=== PATIENT | female | born 1930 | race Caucasian/White ===

== ENCOUNTER → 2016-09-17 | Outpatient (REF) | payer MEDICARE, OTHER ==
[2016-09-17 17:48] LABS: FOLATE > 24.0 NG/ML (>5.4); VITAMIN B12 LEVEL 1193 PG/ML (247-911)
[2016-09-17 17:53] LABS: ALBUMIN 3.9 GM/DL (3.2-5.2); ALBUMIN/GLOBULIN RATIO 1.44 (1.00-1.93); ALKALINE PHOSPHATASE 80 U/L (45-117); ALT/SGPT 23 U/L (12-78); ANION GAP 7 MEQ/L (8-16); AST/SGOT 15 U/L (15-37); BILIRUBIN,TOTAL 0.6 MG/DL (0.2-1.0); BLOOD UREA NITROGEN 31 MG/DL (7-18); CALCIUM LEVEL 9.6 MG/DL (8.8-10.2); CARBON DIOXIDE LEVEL 28 MEQ/L (21-32); CHLORIDE LEVEL 105 MEQ/L (98-107); CREATININE FOR GFR 1.12 MG/DL (0.55-1.02); GLUCOSE, FASTING 117 MG/DL (83-110); POTASSIUM SERUM 4.6 MEQ/L (3.5-5.1); SODIUM LEVEL 140 MEQ/L (136-145); TOTAL PROTEIN 6.6 GM/DL (6.4-8.2)
[2016-09-17 18:29] LABS: MEAN CORPUSCULAR HEMOGLOBIN 31.6 pg (27.0-33.0); MEAN CORPUSCULAR HGB CONC 32.5 g/dl (32.0-36.5); MEAN CORPUSCULAR VOLUME 97.1 fl (80.0-96.0); PLATELET COUNT, AUTOMATED 247 k/mm3 (150-450); RED CELL DISTRIBUTION WIDTH 13.3 % (11.5-14.5); WHITE BLOOD COUNT 6.4 K/mm3 (4.0-10.0)
[2016-09-17 20:54] LABS: EOSINOPHILS 3 % (0-5)
== END ==
LOC: M SFHCCLAY 11:13
PROVIDERS: ATTEND Family Medicine
DX: R53.83 Other fatigue (principal); R03.0 Elevated blood-pressure reading, without diagnosis of hypertension; R73.01 Impaired fasting glucose; E78.5 Hyperlipidemia, unspecified

== ENCOUNTER → 2018-01-09 | Outpatient (REF) | payer MEDICARE, OTHER ==
[2018-01-09 16:53] LABS: BASO % 0.3 % (0.0-1.0); EOS # 0.2 10^3/uL (0.0-0.50); EOS % 3.7 % (0.0-3.0); HEMATOCRIT 41.4 % (36.0-47.0); HEMOGLOBIN 13.5 g/dl (12.0-15.5); IMMATURE GRANULOCYTE % 0.3 % (0-3.0); LYMPH # 1.5 10^3/uL (1.5-4.5); LYMPH % 23.8 % (24.0-44.0); MEAN CORPUSCULAR HEMOGLOBIN 31.3 pg (27.0-33.0); MEAN CORPUSCULAR HGB CONC 32.6 g/dl (32.0-36.5); MEAN CORPUSCULAR VOLUME 95.8 fl (80.0-96.0); MONO # 0.4 10^3/uL (0.0-0.8); MONO % 6.2 % (0.0-5.0); NEUTROPHILS # 4.1 10^3/uL (1.8-7.7); NEUTROPHILS % 65.7 % (36.0-66.0); PLATELET COUNT, AUTOMATED 250 10^3/uL (150-450); RED BLOOD COUNT 4.32 10^6/uL (4.00-5.40); RED CELL DISTRIBUTION WIDTH 13.6 % (11.5-14.5); WHITE BLOOD COUNT 6.3 10^3/uL (4.0-10.0)
[2018-01-09 17:04] LABS: VITAMIN B12 LEVEL 1109 PG/ML (247-911)
[2018-01-09 17:16] LABS: ALBUMIN 3.6 GM/DL (3.2-5.2); ALKALINE PHOSPHATASE 82 U/L (45-117); ALT/SGPT 25 U/L (12-78); ANION GAP 8 MEQ/L (8-16); AST/SGOT 15 U/L (7-37); BILIRUBIN,TOTAL 0.7 MG/DL (0.2-1.0); BLOOD UREA NITROGEN 28 MG/DL (7-18); CALCIUM LEVEL 8.8 MG/DL (8.8-10.2); CARBON DIOXIDE LEVEL 27 MEQ/L (21-32); CHLORIDE LEVEL 105 MEQ/L (98-107); CREATININE FOR GFR 1.15 MG/DL (0.55-1.30); GLOMERULAR FILTRATION RATE 47.4 (>32); GLUCOSE, FASTING 108 MG/DL (70-100); POTASSIUM SERUM 4.3 MEQ/L (3.5-5.1); SODIUM LEVEL 140 MEQ/L (136-145); TOTAL PROTEIN 6.6 GM/DL (6.4-8.2)
[2018-01-09 19:34] LABS: ESTIMATED AVERAGE GLUCOSE 148 MG/DL (60-110); HEMOGLOBIN A1c 6.8 %
== END ==
LOC: M SFHCCLAY 10:04
DX: R35.0 Frequency of micturition (principal); R73.9 Hyperglycemia, unspecified; E53.8 Deficiency of other specified B group vitamins; Z13.21 Encounter for screening for nutritional disorder; R41.0 Disorientation, unspecified
CPT/HCPCS: 84443

== ENCOUNTER → 2018-06-25 | Outpatient (CLI) | payer MEDICARE, OTHER ==
[2018-06-25 10:42] LABS: BASO % 0.5 % (0.0-1.0); EOS # 0.1 10^3/uL (0.0-0.50); EOS % 1.7 % (0.0-3.0); HEMATOCRIT 42.9 % (36.0-47.0); HEMOGLOBIN 13.6 g/dl (12.0-15.5); LYMPH # 1.2 10^3/uL (1.5-4.5); LYMPH % 19.4 % (24.0-44.0); MEAN CORPUSCULAR HEMOGLOBIN 31.4 pg (27.0-33.0); MEAN CORPUSCULAR HGB CONC 31.7 g/dl (32.0-36.5); MEAN CORPUSCULAR VOLUME 99.1 fl (80.0-96.0); MONO # 0.3 10^3/uL (0.0-0.8); MONO % 5.6 % (0.0-5.0); NEUTROPHILS # 4.3 10^3/uL (1.8-7.7); NEUTROPHILS % 72.6 % (36.0-66.0); PLATELET COUNT, AUTOMATED 259 10^3/uL (150-450); RED BLOOD COUNT 4.33 10^6/uL (4.00-5.40); WHITE BLOOD COUNT 5.9 10^3/uL (4.0-10.0)
[2018-06-25 11:12] LABS: ALBUMIN 3.8 GM/DL (3.2-5.2); BILIRUBIN,TOTAL 0.7 MG/DL (0.2-1.0); CREATININE FOR GFR 1.11 MG/DL (0.55-1.30); GLOMERULAR FILTRATION RATE 49.3 (>32); POTASSIUM SERUM 4.3 MEQ/L (3.5-5.1); THYROID STIMULATING HORMONE 2.58 uIU/ML (0.358-3.740); THYROXINE (T4) 10.2 UG/DL (4.5-12.0); TOTAL PROTEIN 6.6 GM/DL (6.4-8.2); TOTAL T3 91.8 NG/DL (60.0-181.0)
[2018-06-25 11:50] LABS: HEMOGLOBIN A1c 6.5 %
--- NOTE | 2018-06-26 07:13 | ECHO ---
DATE OF STUDY: 06/25/2018 REFERRING PHYSICIAN: Dr. Selwyn Abarca INDICATION: Syncope, dizziness and giddiness. 2-D MEASUREMENTS: Left atrium: 3.2 cm Aortic root: 3.0 cm Ventricular septum: 1.05 cm Posterior wall: 1.06 cm Left ventricle diastole: 3.5 cm Inferior vena cava: 2.1 cm DOPPLER MEASUREMENTS: Moderate aortic regurgitation, no aortic stenosis Aortic valve velocity: 116 cm/sec LVOT velocity: 105 cm/sec LVOT VTI: 25.4 cm Very mild mitral regurgitation Mitral E velocity: 54.3 cm/sec Mitral A velocity: 101 cm/sec Mitral deceleration time: 243 ms Mild tricuspid regurgitation Estimated right ventricular systolic pressure 28 mmHg assuming a right atrial pressure of 5 mmHg Pulmonary artery systolic pressure 14 mmHg by pulmonary acceleration time method MITRAL ANNULAR TISSUE DOPPLER: E prime septal: 3.6 cm/sec E prime lateral: 6.2 cm/sec DESCRIPTION: The rhythm was sinus. Image quality was fair. No pericardial effusion. This was a 2-D, M-mode, color flow Doppler and pulse wave Doppler examination and included mitral annular tissue Doppler. CONCLUSIONS: 1. Moderate aortic valve sclerosis of a 3-cuspid aortic valve. Moderate aortic regurgitation. No aortic stenosis. 2. Moderate mitral annular calcification. Very mild mitral regurgitation. No mitral stenosis. 3. Normal left ventricle internal dimensions and wall thickness. Normal regional LV wall motion and wall thickening. Normal LV systolic function. LVEF 65% by visual estimate. Grade 1 LV diastolic function. 4. Normal right ventricle size and systolic function. Normal pulmonary artery systolic pressure and estimated right ventricle systolic pressure.
== END ==
LOC: M CARPUL 09:08
PROVIDERS: ATTEND Family Medicine
DX: R55 Syncope and collapse (principal); R42 Dizziness and giddiness; Z79.899 Other long term (current) drug therapy

== ENCOUNTER → 2019-01-05 | Outpatient (REF) | payer MEDICARE, OTHER | LOC: M SFHCCLAY 13:15 | PROVIDERS: ATTEND Family Medicine | DX: E53.8 Deficiency of other specified B group vitamins (principal) ==